=== PATIENT | male | born 2000 | race Caucasian/White ===

== ENCOUNTER 2021-02-16 07:50 | Emergency (ER) | payer OTHER ==
[~2021-02-16] VITALS: Ht 172.7 cm; Wt 95.3 kg
[2021-02-16 07:54] VITALS: BP 140/77
== END 2021-02-16 08:45 | disposition home or self-care (01) ==
LOC: ER 07:50
DX: S61.011A Laceration without foreign body of right thumb without damage to nail, initial encounter (principal); W26.0XXA Contact with knife, initial encounter; Y93.89 Activity, other specified; Y92.89 Other specified places as the place of occurrence of the external cause; Y99.8 Other external cause status